=== PATIENT | female | born 1970 | race Caucasian/White ===

== ENCOUNTER → 2018-01-25 | Outpatient (CLI) | payer BC | END | disposition home or self-care (01) | LOC: PCVCIMAG 16:31 | DX: R55 Syncope and collapse (principal); R06.00 Dyspnea, unspecified; R94.31 Abnormal electrocardiogram [ECG] [EKG]; Z82.49 Family history of ischemic heart disease and other diseases of the circulatory system | CPT/HCPCS: 93325; 93351 ==

== ENCOUNTER → 2019-05-25 | Outpatient (CLI) | payer BC ==
--- NOTE | 2019-05-25 11:25 | PCVCIMAG ---
APPROVED REPORT Study performed: 05/25/2019 09:43:24 Exam: Stress Echocardiogram Indication: Abn EKG,DM I, HCL,SOB,CP Patient Location: Echo lab Stress Nurse: Graciela Gallagher RN Room #: 2 Status: routine Ht: 5 ft 6 in HR: 73 bpm BP: 128/84 mmHg Rhythm: NSR,frequent PVCs Medical History Medical History: Diabetic Insulin, Hyperlipidemia Cardiac Risk Factors: Hyperlipidemia, DM I Previous Cardiac Procedures: none Pretest Chest Pain Characteristics: No chest pain Exercise History: Physically active Procedure The patient underwent an Exercise Stress Test using the Juan Jose Protocol. Blood pressure, heart rate, and EKG were monitored. An Echocardiogram was performed by software support technician in four stages in quad fashion. At peak stress, four selected images were obtained and placed side by side with resting images for comparison. Stress Test Details Stress Test: Exercise stress testing was performed using a Juan Jose protocol. HR Resting HR: 73 bpmMax Heart Rate (APMHR): 173 bpm Max HR Achieved: 193 bpmTarget HR (85% APMHR): 147 bpm % of APMHR: 111 Recovery HR: 85 bpm HR response to stress: Normal HR response to stress BP Resting BP: 128/84 mmHg Max BP: 144/70 mmHg Recovery BP: 132/72 mmHg BP response to stress: Normal blood pressure response to stress. ECG Resting ECG: Sinus Rhythm, NSSTT changes, Frequent PVCs Stress ECG: Sinus Rhythm, NSSTT changes, Frequent PVCs ST Change: Non-ischemic Maximum ST Deviation: -1.25 mm Arrhythmia: Frequent PVCs,short runs svt Recovery ECG: Sinus Rhythm, NSSTT changes Recovery ST Change: Non-ischemic Recovery ST Deviation: -1.3 mm Recovery Arrhythmia: Frequent PVCs Clinical Reason for Termination: Maximal effort Exercise duration: 13 min 16 sec Highest Stage Achieved: Stage 5: 5.0 mph at 18% grade. Exercise capacity: 17.5 METs Overall Exercise Capacity for Age: Good Scale: Active Angina Score: None No complications. Stress ECG Conclusion Concepcion Treadmill Score is 19.3 which is Low risk. Pre-Stress Echo The resting Echocardiogram showed normal left ventricular contractility with an estimated Ejection Fraction of about 55-60%. Normal wall motion in all segments on baseline images. Post-Stress Echo The stress Echocardiogram showed normal left ventricular contractility with an estimated Ejection Fraction of about 65-70%. Normal augmentation of wall motion in all segments on post stress images. Clinical No clinical or ECG evidence for ischemia. Conclusion Clinical Response: Non-ischemic Exercise Capacity: Superior Stress ECG Response: Non-ischemic Stress Echo Images: Non-ischemic No clinical, EKG or echocardiographic evidence for ischemia. No echocardiographic evidence for exercise induced ischemia. Normal stress echocardiogram with maximal exercise stress. Normal color doppler. No regurgitation or stenosis present on pulmonic, mitral, tricuspid and aortic valves. <Conclusion> No clinical, EKG or echocardiographic evidence for ischemia. No echocardiographic evidence for exercise induced ischemia. Normal stress echocardiogram with maximal exercise stress. Normal color doppler. No regurgitation or stenosis present on pulmonic, mitral, tricuspid and aortic valves.
== END | disposition home or self-care (01) ==
LOC: PCVCIMAG 09:15
PROVIDERS: ATTEND Internal Medicine Cardiovascular Disease
DX: R06.02 Shortness of breath (principal); R07.9 Chest pain, unspecified; R94.31 Abnormal electrocardiogram [ECG] [EKG]; E78.00 Pure hypercholesterolemia, unspecified; R55 Syncope and collapse; E13.9 Other specified diabetes mellitus without complications; Z82.49 Family history of ischemic heart disease and other diseases of the circulatory system; Z88.0 Allergy status to penicillin
CPT/HCPCS: 93325; 93351